=== PATIENT | female | born 1930 | race Caucasian/White ===

== ENCOUNTER 2019-03-17 11:45 | Inpatient (IN) ==
[2019-03-17 12:48] LABS: Albumin Level 3.4 gm/dl (3.4-5.0); BUN Creatinine Ratio 20.8 (10-20); Calcium 9.1 mg/dl (8.5-10.1); Creatinine Clr Calc Pharmacy 42.1 ml/min; Est GFR (African American) 70.4; Est GFR (Non-African American) 60.7; Magnesium 2.2 mg/dl (1.8-2.4); Potassium 4.2 mmol/L (3.5-5.1)
[2019-03-17 12:50] LABS: Basophils # (auto) 0.04 K/uL (0-0.2); Basophils % (auto) 0.4 %; Eosinophils # (auto) 0.14 K/uL (0-0.5); Eosinophils % (auto) 1.5 %; Hematocrit (blood only) 38.2 % (37-47); Hemoglobin 12.6 g/dL (12.0-16.0); Immature Granulocytes # (auto) 0.02 K/uL (0.00-0.02); Immature Granulocytes % (auto) 0.2 %; Lymphocytes # (auto) 1.79 K/uL (1.2-3.4); Lymphocytes % (auto) 19.4 %; Mean Corpuscular Hemoglobin 30.8 pg (25-34); Mean Corpuscular Volume 93.4 fL (80-100); Mean Platelet Volume 9.5 fL (7.4-10.4); Monocytes # (auto) 0.82 K/uL (0.11-0.59); Monocytes % (auto) 8.9 %; Neutrophils # (auto) 6.44 K/uL (1.4-6.5); Neutrophils % (auto) 69.6 %; Platelet Count 297 K/uL (130-400); RDW Coefficient of Variation 13.5 % (11.5-14.5); Red Blood Count 4.09 M/uL (4.2-5.4); White Blood Count 9.25 K/uL (4.8-10.8)
[2019-03-17 12:58] LABS: Albumin Globulin Ratio 0.9 (0.9-2); Bilirubin,Total 0.8 mg/dl (0.2-1); Thyroid Stimulating Hormone 0.79 uIu/ml (0.300-4.500); Total Protein 7.4 gm/dl (6.4-8.2)
[2019-03-17 13:30] LABS: Prothrombin Time 10.3 Seconds (9.0-12.0)
--- NOTE | 2019-03-17 13:32 | XRay Report ---
SINGLE VIEW CHEST CLINICAL HISTORY: Palpitations. FINDINGS: An AP, portable, upright chest radiograph is obtained. No prior studies are available for c omparison at the time of dictation. The heart is top normal for projection, noting atherosclerotic calcification of the thoracic aorta. There is elevation of right hemidiaphragm and bibasilar atelecta sis. The lungs and pleural spaces are otherwise clear. No pneumothorax is seen. The skeletal structur es are osteopenic. The bony thorax is grossly intact. IMPRESSION: No active disease in the chest. Electronically signed by: Justino Peralta M.D. 03/17/2019 1:31 PM
[2019-03-17 13:44] LABS: Phosphorus 3.6 mg/dl (2.5-4.9); Troponin I < 0.015 ng/ml (0-0.045)
[2019-03-17 14:39] LABS: Partial Thromboplastin Time 25.8 Seconds (21.0-31.0)
--- NOTE | 2019-03-17 14:41 | Cardiology Consultation ---
Date of Consultation March 17, 2019 Assessment & Plan (1) Paroxysmal atrial fibrillation: (2) Sick sinus syndrome: The patients recent subjective symptom of palpitations was not reproduced during her heart monitor however she had abnormalities as noted. At this time, recommend EP consultation for pacemaker. Her CHADSVASC score is 6 givne the following risk factors: HTN(1), age >75(2), female(1), stroke (2). Will start systemic anticoagulation with coumadin or a direct oral anticoagulant after the pacemaker. (3) HTN (hypertension): Continue prior to hospital dose of losartan 50 mg daily and amlodipine for now. Add AV herb blockers such as diltiazem and / or metoprolol post pacemaker. History of Present Illness History of Present Illness Destiney Snyder is an 88 year old female seen in cardiology consultation in ED room B3 per the request of Dr Giordano for the evaluation of recent subjective palpitations and abnormal ambulatory dry cleaner helper. The patient's primary operator command support systems is Dr. Mehran Langford of our practice. She had most recently been seen in routine follow-up on 09/24/2018. At that time she described stable cardiac signs and symptoms performing yoga twice per week. She had been having difficulty with worsening macular degeneration. 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 She has a long-standing history of hypertension that has recently been difficult to control. Her history is also notable for a lacunar stroke which took place in April 2017 and mild dyslipidemia. On 03/04/2019 she had been seen by primary care with subjective complaint of palpitations. She describes having had an episode on 03/02 with sensation of rapid heart rate. A nurse that lives in her building and her heart rate and blood pressure were noted with she took the pt's vitals. The patient considered going to the ED, however her heart rate racing stopped on its own after about 90 minutes and since she had a routine primary care visit planned in two days she waited for her appointment to bring it up. A 7-day ZioPatch Xt monitor was performed revealing findings compatible with sick sinus syndrome. Paroxysmal atrial fibrillation was detected with rapid ventricular response in the range of 60 to 190 bpm, average ventricular rate when in atrial fibrillation 122 bpm, 47% atrial fibrillation burden. There were also episodes of supraventricular tachycardia the longest of which was 19 beats in duration with rate of 121 bpm. An event captured on 03/08/2019 at 5:20 AM revealed atrial fibrillation with a subsequent 6.4-second pause, offset to transient junctional rhythm and then sinus bradycardia. She denies any recent syncope or near syncope. She no longer drives due to her macular degeneration. 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 Her granddaughter accompanies her to the ED. She lives alone in an apartment in [place] with her cat, Polly. Allergies Allergy/AdvReac Type Severity Reaction Status Date / Time triamterene Allergy Rash Unverified 03/17/19 13:02 amoxicillin AdvReac Unknown Unverified 03/17/19 13:01 lisinopril AdvReac Cough Unverified 03/17/19 13:01 NSAIDS (Non-Steroidal AdvReac Hypertensio Unverified 03/17/19 13:01 Anti-Inflamma n Home Medications Home Medications Medication Instructions Recorded Confirmed Type amlodipine 2.5 mg PO DAILY 03/17/19 03/17/19 History ascorbic acid (vitamin C) 1 g PO DAILY 03/17/19 03/17/19 History aspirin 81 mg PO DAILY 03/17/19 03/17/19 History atorvastatin 40 mg PO DAILY 03/17/19 03/17/19 History calcium carbonate [Calcium 500] 1,000 mg PO DAILY 03/17/19 03/17/19 History cholecalciferol (vitamin D3) 1,000 unit PO DAILY 03/17/19 03/17/19 History cyanocobalamin (vitamin B-12) 1,000 mcg PO DAILY 03/17/19 03/17/19 History diphenhydramine-acetaminophen 1 tab PO HS PRN 03/17/19 03/17/19 History [Tylenol PM Extra Strength] glucos sul [id number]-C-Mn 1 cap PO BID 03/17/19 03/17/19 History [Glucosamine Chondroitin] losartan 50 mg PO DAILY 03/17/19 03/17/19 History lutein 20 mg PO DAILY 03/17/19 03/17/19 History multivitamin 1 tab PO DAILY 03/17/19 03/17/19 History omeprazole 20 mg PO DAILY 03/17/19 03/17/19 History vit C,R-Je-ktioz-lutein-zeaxan 1 tab PO BID 03/17/19 03/17/19 History [PreserVision AREDS-2] vitamin E 1,000 unit PO DAILY 03/17/19 03/17/19 History Patient History Medical History Lyme disease (Resolved) Stroke (Resolved) Family History Other No pertinent family history in first degree relatives Social History Feels Safe at Home: Yes Smoking Status: Never smoker Review of Systems Review of Systems: All systems reviewed & are unremarkable except as noted in HPI & below Physical Exam Physical Exam: Temp Pulse Resp BP Pulse Ox 37 C 59 L 23 178/71 H 96 03/17/19 11:55 03/17/19 13:30 03/17/19 13:30 03/17/19 13:30 03/17/19 13:30 Constitutional: WD/WN, vitals as above Respiratory: normal respiratory effort, lungs clear to auscultation Cardiovascular: RRR, no murmur, no edema Gastrointestinal (Abdomen): normal bowel sounds, soft, nontender, no hepatosplenomegaly Neurologic: PERRL, EOMI, accommodation nl, no face palsy, no dysarthria Results & Data Vital Signs (Past 12 Hours) Vital Signs Temp Pulse Pulse Resp BP BP Pulse Ox 03/17/19 13:30 59 L 23 178/71 H 96 03/17/19 13:00 50 L 22 157/76 H 95 03/17/19 12:30 52 L 17 148/62 H 93 03/17/19 12:21 94 03/17/19 12:18 53 L 20 163/64 H 94 03/17/19 11:55 37 C 64 18 160/78 H 94 Laboratory Results Cardiac Enzymes 03/17/19 03/17/19 Range/Units 12:18 12:18 AST 15 (15-37) U/L Troponin I < 0.015 (0-0.045) ng/ml Coagulation 03/17/19 03/17/19 Range/Units 12:18 12:18 PT 10.3 (9.0-12.0) Seconds APTT 25.8 (21.0-31.0) Seconds CBC 03/17/19 Range/Units 12:18 WBC 9.25 (4.8-10.8) K/uL RBC 4.09 L (4.2-5.4) M/uL Hgb 12.6 (12.0-16.0) g/dL Hct 38.2 (37-47) % Plt Count 297 (130-400) K/uL Neut # (Auto) 6.44 (1.4-6.5) K/uL Lymph # (Auto) 1.79 (1.2-3.4) K/uL Hooker # (Auto) 0.82 H (0.11-0.59) K/uL Eos # (Auto) 0.14 (0-0.5) K/uL Baso # (Auto) 0.04 (0-0.2) K/uL Comprehensive Metabolic Panel 03/17/19 Range/Units 12:18 Sodium 140 (136-145) mmol/L Potassium 4.2 (3.5-5.1) mmol/L Chloride 104 (98-107) mmol/L Carbon Dioxide 28 (21-32) mmol/L BUN 18 (7-18) mg/dl Creatinine 0.86 (0.6-1.2) mg/dl Glucose 83 (70-99) mg/dl Calcium 9.1 (8.5-10.1) mg/dl AST 15 (15-37) U/L ALT 23 (12-78) U/L Alkaline Phosphatase 118 H (45-117) U/L Total Protein 7.4 (6.4-8.2) gm/dl Albumin 3.4 (3.4-5.0) gm/dl Intake and Output 03/17/19 03/17/19 03/17/19 06:59 14:59 22:59 Other: Weight 64.3 kg Patient Weight 03/18/19 06:59 Weight 64.3 kg Diagnostic Findings EKG performed today in the ED revealed SB at 59 bpm normal TN interval, normal QRS duration.
[2019-03-17] MEDS ORDERED: DiphenhydrAMINE HCL 50 MG/ML VIAL IV STA (14:54)
--- NOTE | 2019-03-17 14:58 | History & Physical Report ---
Date of Service March 17, 2019 Assessment & Plan (1) Sick sinus syndrome: This is an 88yo F with a PMH of HTN, h/o CVA (lacunar stroke in Apr 2017), PVD, CKD III, and other medical problems listed below who presents with abnormal results on ZIO heart monitor and was found to have sick sinus syndrome. -Had episode of palpitations 2 weeks ago, OP ZIO monitor with varying HR from 40s-190s with 47% atrial fibrillation. Also revealed a 6 second pause on Mar 08 -Currently asymptomatic. EKG with sinus bradycardia at 59 bpm -Cardiology consulted- recommend EP consultation for pacemaker -Will continue losartan and amlodipine for now -Monitor on telemetry. NPO after midnight (2) Paroxysmal atrial fibrillation: Noted to have atrial fibrillation on ZIO monitor 47% of the time -CHADSVASC score is 6. Per cardiology, will start systemic anticoagulation with coumadin or a direct oral anticoagulant after pacemaker placement (3) HTN (hypertension): Continue losartan 50mg daily and amlodipine 2.5mg daily -Plan to add AV herb blockers such as diltiazem and /or metoprolol post pacemaker (4) HLD (hyperlipidemia): Continue statin (5) H/O: CVA (cerebrovascular accident): History of lacunar infarct in Apr 2017, no residual deficits -Continue baby aspirin, statin (6) Macular degeneration: Continue AREDS 2 multivitamin DVT Ppx: SCDS Code status: FULL PCP: Crystal Dispo: Admitted to telemetry. Plan to return home once medically stable. Patient seen in collaboration with Dr. Ramos. Please see addendum. History of Present Illness Chief Complaint: Abnormal zio monitor results Primary Care Provider: Rufina Rojas, This is an 88yo F with a PMH of HTN, h/o CVA (lacunar stroke in Apr 2017), PVD, CKD III, and other medical problems listed below who presents with abnormal results on ZIO heart monitor. Earlier this month on Mar 02, patient experienced a 90-minute episode of heart racing and associated lightheadedness before symptoms resolved. Had her vitals taken by nurse at apartment building and was advised to go to ED but decided to follow-up at previously scheduled clinic appointment 2 days later. Was placed on a 7-day ZIO heart monitor that showed varying HR from 40s-190s with 47% atrial fibrillation. Also revealed a 6 second pause on Mar 08. PCP made aware of monitored findings today and spoke with Dr. López in clinic, who advised that patient come to ED for further evaluation and likely pacemaker placement. Currently, patient is asymptomatic. Granddaughter at bedside. Denies fever, chills, headache, lightheadedness, visual changes, chest pain, palpitations, shortness of breath, abdominal pain, nausea, vomiting, dysuria, constipation or diarrhea. Patient is active and lives at [facility] in [place]. Manages own medications and ambulates independently. Allergies Allergy/AdvReac Type Severity Reaction Status Date / Time triamterene Allergy Rash Unverified 03/17/19 13:02 amoxicillin AdvReac Unknown Unverified 03/17/19 13:01 lisinopril AdvReac Cough Unverified 03/17/19 13:01 NSAIDS (Non-Steroidal AdvReac Hypertensio Unverified 03/17/19 13:01 Anti-Inflamma n Home Medications Home Medications Medication Instructions Recorded Confirmed Type amlodipine 2.5 mg PO DAILY@1620 03/17/19 03/17/19 History ascorbic acid (vitamin C) 1 g PO DAILY 03/17/19 03/17/19 History aspirin 81 mg PO DAILY 03/17/19 03/17/19 History atorvastatin 40 mg PO DAILY 03/17/19 03/17/19 History calcium carbonate [Calcium 500] 1,000 mg PO DAILY 03/17/19 03/17/19 History cholecalciferol (vitamin D3) 1,000 unit PO DAILY 03/17/19 03/17/19 History cyanocobalamin (vitamin B-12) 1,000 mcg PO DAILY 03/17/19 03/17/19 History diphenhydramine-acetaminophen 1 tab PO HS PRN 03/17/19 03/17/19 History [Tylenol PM Extra Strength] glucos sul [id number]-bmf-gddca-C-Mn 1 cap PO BID 03/17/19 03/17/19 History [Glucosamine Chondroitin] losartan 50 mg PO DAILY 03/17/19 03/17/19 History lutein 20 mg PO DAILY 03/17/19 03/17/19 History multivitamin 1 tab PO DAILY 03/17/19 03/17/19 History omeprazole 20 mg PO DAILY 03/17/19 03/17/19 History vit C,Q-Dp-kedfv-lutein-zeaxan 1 tab PO BID 03/17/19 03/17/19 History [PreserVision AREDS-2] vitamin E 1,000 unit PO DAILY 03/17/19 03/17/19 History Past Med/Surg History Medical History History of breast cancer (Resolved) Macular degeneration (Chronic) CKD (chronic kidney disease), stage III (Chronic) H/O: CVA (cerebrovascular accident) (Chronic) lacunar stroke, Apr 2017 HLD (hyperlipidemia) (Chronic) HTN (hypertension) (Chronic) Surgical History History of modified radical mastectomy of right breast (Chronic) Family History Other Colorectal cancer Heart disease Social History Preferred Language: Croatian Communication Ability: Effective Beliefs That Will Affect Care: Buddhism Buddhism Beliefs: Latter Day marital status: / Current Living Situation: Alone Current Living Situation Comment: independent living apartments Feels Safe at Home: Yes Smoking Status: Never smoker Hx Alcohol Use: No Hx Substance Use: No Review of Systems Review of Systems: At least ten systems reviewed and negative except as noted in the HPI. Physical Exam Physical Exam: General Appearance: WD/WN, vitals as above, NAD, sitting up in bed, pleasant, conversing easily Head: normocephalic, atraumatic Eyes: Blind L eye, PERRL, conjunctivae normal, anicteric sclerae ENT: external ear and nose normal, oropharynx normal Neck: trachea midline, no thyromegaly normal visual inspection Respiratory: lungs clear to auscultation, no wheeze, rales, rhonchi. Normal insp/exp effort, no accessory muscle use Cardiovascular: regular rate, rhythm, no murmur appreciated, normal peripheral pulses. Vessels: no JVD or carotid bruit Chest: normal inspection of chest Abdomen/GI: normal bowel sounds, soft, nontender, no hepatosplenomegaly Extremities/Musculoskelatal: no cyanosis or clubbing, extremities motor strength 5/5 Neurologic: PERRL, EOMI, accommodation nl, no face palsy, no dysarthria CN's II-XI intact bilaterally and moves all extremities Psychiatric: A+Ox3, euthymic affect Skin: no rashes, normal color, warm/dry Results & Data Vital Signs (Past 12 Hours) Vital Signs Temp Pulse Pulse Resp BP BP Pulse Ox 03/17/19 14:55 58 L 24 171/63 H 93 03/17/19 13:30 59 L 23 178/71 H 96 03/17/19 13:00 50 L 22 157/76 H 95 03/17/19 12:30 52 L 17 148/62 H 93 03/17/19 12:21 94 03/17/19 12:18 53 L 20 163/64 H 94 03/17/19 11:55 37 C 64 18 160/78 H 94 Laboratory Results Short CBC 03/17/19 Range/Units 12:18 WBC 9.25 (4.8-10.8) K/uL Hgb 12.6 (12.0-16.0) g/dL Hct 38.2 (37-47) % Plt Count 297 (130-400) K/uL BMP 03/17/19 12:18 Sodium 140 Potassium 4.2 Chloride 104 Carbon Dioxide 28 BUN 18 Creatinine 0.86 Glucose 83 Calcium 9.1 Cardiac Enzymes 03/17/19 Range/Units 12:18 Troponin I < 0.015 (0-0.045) ng/ml Liver Function 03/17/19 Range/Units 12:18 Total Bilirubin 0.8 (0.2-1) mg/dl AST 15 (15-37) U/L ALT 23 (12-78) U/L Alkaline Phosphatase 118 H (45-117) U/L Albumin 3.4 (3.4-5.0) gm/dl Diagnostic Findings CXR: IMPRESSION: No active disease in the chest. ECG Rhythm: sinus bradycardia Code Status & VTE Plan Code Status Advanced directives discussed with patient. She has a living will. She would like resuscitation attempted in the event of a cardiopulmonary arrest if there is a chance of a meaningful recovery. However, she does not want extraordinary measures initiated or continued in the setting of a terminal illness or state of permanent unconsciousness. Code status is full resuscitation. Supervising Physician Co-Signing Physician Notes HISTORY: Record reviewed. Patient interviewed and examined. Care coordinated with Melissa Francois PA-C; please refer to her documentation for patient's history. Briefly, 88 YO female with history of paroxysmal atrial fibrillation and hypertension. Recent prolonged episode of tachypalpitations. Outpatient cardiac monitoring with ZIO patch revealed runs of atrial fib / flutter as well as bradycardia and pauses up to 6 seconds. No associated CP, SOB, lightheadedness, syncope. EXAM: General- no distress Lungs- clear to auscultation; no respiratory distress Cardiovascular- RRR; I/ murmur at base; no gallop; no JVD; no pretibial edema Abdomen- + bowel sounds, soft, nontender Extremities- no cyanosis; no calf tenderness Neuro- alert, oriented Skin- warm & dry DATA: TSH 0.79. Other lab studies as noted. Chest x-ray negative. EKG performed at 12:00 reviewed and demonstrated SB at 55 / minute, no acute changes. ASSESSMENT AND PLAN: Tachy-citlaly syndrome. Anticipated need for pacemaker and rate controlling meds. Cardiology consulted. Please refer to BROOKE Francois's documentation for discussion of other issues.
--- NOTE | 2019-03-17 16:15 | Cardiology Consultation ---
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 Treating her rapid heart rate without a pacemaker is not an option due to her bradycardia. (2) Paroxysmal atrial fibrillation: She has atrial fibrillation identified on monitoring, during a week of monitoring she had more than 45% atrial fibrillation. The rates were quite fast and she needs rate control. Additionally she will need anticoagulation, especially with her history of stroke. I would like to wait until after the pacemaker is implanted to consider anticoagulation. (3) Sinus node dysfunction: She has sinus node dysfunction as evidenced by a markedly abnormal sinus node recovery time after termination of atrial fibrillation, one pause of over 6 seconds identified. Despite lack of symptoms this is risky, in addition she needs rate control for her atrial fibrillation which might potentiate this abnormality. History of Present Illness Reason for Consultation: Pause on monitoring History of Present Illness This is a 88-year-old woman with a history of Lyme carditis with transient atrial fibrillation in December of this year, as well as hypertension and a lacunar stroke in April 2017. She was having difficulty with palpitations and therefore a monitor was ordered, that monitor showed paroxysmal atrial f ibrillation comprising 47% of the recording, the average heart rate during atrial fibrillation was about 122 bpm.on one occasion the arrhythmia terminated abruptly with a pause of longer than 6 seconds before sinus rhythm resumed. Her baseline heart rate is somewhat slow, however she appears to be asymptomatic. She does not have symptoms of lightheadedness or dizziness and has never had presyncope or syncope. She has no other cardiovascular symptoms. She was referred to the emergency room. At the time of my evaluation she was in the emergency room with I believe her granddaughter. She was not having any complaints, she was alert and cooperative. Allergies Allergy/AdvReac Type Severity Reaction Status Date / Time triamterene Allergy Rash Unverified 03/17/19 13:02 amoxicillin AdvReac Unknown Unverified 03/17/19 13:01 lisinopril AdvReac Cough Unverified 03/17/19 13:01 NSAIDS (Non-Steroidal AdvReac Hypertensio Unverified 03/17/19 13:01 Anti-Inflamma n Home Medications Home Medications Medication Instructions Recorded Confirmed Type amlodipine 2.5 mg PO DAILY@2510 03/17/19 03/17/19 History ascorbic acid (vitamin C) 1 g PO DAILY 03/17/19 03/17/19 History aspirin 81 mg PO DAILY 03/17/19 03/17/19 History atorvastatin 40 mg PO DAILY 03/17/19 03/17/19 History calcium carbonate [Calcium 500] 1,000 mg PO DAILY 03/17/19 03/17/19 History cholecalciferol (vitamin D3) 1,000 unit PO DAILY 03/17/19 03/17/19 History cyanocobalamin (vitamin B-12) 1,000 mcg PO DAILY 03/17/19 03/17/19 History diphenhydramine-acetaminophen 1 tab PO HS PRN 03/17/19 03/17/19 History [Tylenol PM Extra Strength] glucos sul 2QJw-qck-jgtxo-C-Mn 1 cap PO BID 03/17/19 03/17/19 History [Glucosamine Chondroitin] losartan 50 mg PO DAILY 03/17/19 03/17/19 History lutein 20 mg PO DAILY 03/17/19 03/17/19 History multivitamin 1 tab PO DAILY 03/17/19 03/17/19 History omeprazole 20 mg PO DAILY 03/17/19 03/17/19 History vit C,V-Xu-kawdm-lutein-zeaxan 1 tab PO BID 03/17/19 03/17/19 History [PreserVision AREDS-2] vitamin E 1,000 unit PO DAILY 03/17/19 03/17/19 History Patient History Medical History History of breast cancer (Resolved) Macular degeneration (Chronic) CKD (chronic kidney disease), stage III (Chronic) H/O: CVA (cerebrovascular accident) (Chronic) lacunar stroke, Apr 2017 HLD (hyperlipidemia) (Chronic) HTN (hypertension) (Chronic) Surgical History History of modified radical mastectomy of right breast (Chronic) Family History Other Colorectal cancer Heart disease Social History marital status: / Current Living Situation: Alone Feels Safe at Home: Yes Smoking Status: Never smoker Hx Alcohol Use: No Hx Substance Use: No Physical Exam Physical Exam: Constitutional: Alert, cooperative and in no distress. HEENT: Unremarkable Neck: No jugular venous distention, carotid pulses are normal and equal bilaterally without bruits. Pulmonary: Clear to auscultation bilaterally. Cardiac: Regular rhythm with no murmur, gallop or rub. Abdomen: Soft, nontender with normal bowel sounds. Extremities: No edema. Distal pulses intact. Neurologic: No focal findings. Gait is steady. Skin: No rash, ecchymoses or petechiae. Results & Data Vital Signs (Past 12 Hours) Vital Signs Temp Pulse Pulse Resp BP BP Pulse Ox 03/17/19 15:30 54 L 20 160/69 H 96 03/17/19 15:01 64 25 H 199/72 H 95 03/17/19 14:55 58 L 24 171/63 H 93 03/17/19 13:30 59 L 23 178/71 H 96 03/17/19 13:00 50 L 22 157/76 H 95 03/17/19 12:30 52 L 17 148/62 H 93 03/17/19 12:21 94 03/17/19 12:18 53 L 20 163/64 H 94 03/17/19 11:55 37 C 64 18 160/78 H 94 Diagnostic Findings On telemetry her rhythm has been sinus in the emergency room. An electrocardiogram in the emergency showed sinus bradycardia at 55 bpm, otherwise normal. Her monitor strip was reviewed as noted in the HPI. PG Care Time/CCT Total # of Minutes Spent Total Time Spent with Patient: Total time spent is greater than 50% in coordination of care (as documented) at patient's floor/unit and/or counseling patient:
[2019-03-17] MEDS ORDERED: HydrALAZINE HCL 20 MG/ML VIAL IV PRN (17:07)
[2019-03-17] MEDS ORDERED: AMLODIPINE BESYLATE 5 MG TAB PO ONE (17:15)
[2019-03-17] MEDS ORDERED: POLYETHYLENE (MIRALAX) 17 GM PACK PO PRN (18:07)
[2019-03-17] MEDS ORDERED: ACETAMINOPHEN 325 MG TAB PO PRN (18:07)
[2019-03-17] MEDS: CEROVITE ADV FORMULA TAB PO SCH (20:39)
--- NOTE | 2019-03-17 21:14 | Emergency Department Note ---
Entered by Tigist Regalado acting as a scribe for Renan Giordano MD History of Present Illness General Chief complaint: Referred by Doctor Stated complaint: DOCTOR REFERRED Time Seen by Provider: 03/17/19 13:08 Source: patient and family History of Present Illness Onset (ago): hour(s) (today) Location: head (general) Pain Consistency: + other (episode ) Quality: + other (referral by PCP ) Associated symptoms: + other (positive now resolved episode of dizziness; positive now resolved episode of palpitations); no chest pain The patient is a 88 year old female who presents to the Emergency Room with complaints of an episode of a referral by her PCP that occurred today. The patient states that she wore a Holter monitor for 7 days beginning on 03/02/19 after she had an episode of dizziness and palpitations. The patient states that she has not had these symptoms since this time and denies chest pain during this time. The patient states that she was told to come to the ED by her PCP after the report came back from her Holter monitor and showed a 6 second pause and 47% of the time the patient was in flutter. The patient denies a history of Afib or Aflutter. Per the patient's family, the patient has a history of stroke. Home Medications Home Medications Medication Instructions Recorded Confirmed Type amlodipine 2.5 mg PO DAILY@1620 03/17/19 03/17/19 History ascorbic acid (vitamin C) 1 g PO DAILY 03/17/19 03/17/19 History aspirin 81 mg PO DAILY 03/17/19 03/17/19 History atorvastatin 40 mg PO DAILY 03/17/19 03/17/19 History calcium carbonate [Calcium 500] 1,000 mg PO DAILY 03/17/19 03/17/19 History cholecalciferol (vitamin D3) 1,000 unit PO DAILY 03/17/19 03/17/19 History cyanocobalamin (vitamin B-12) 1,000 mcg PO DAILY 03/17/19 03/17/19 History diphenhydramine-acetaminophen 1 tab PO HS PRN 03/17/19 03/17/19 History [Tylenol PM Extra Strength] glucos sul [id number] 1 cap PO BID 03/17/19 03/17/19 History [Glucosamine Chondroitin] losartan 50 mg PO DAILY 03/17/19 03/17/19 History lutein 20 mg PO DAILY 03/17/19 03/17/19 History multivitamin 1 tab PO DAILY 03/17/19 03/17/19 History omeprazole 20 mg PO DAILY 03/17/19 03/17/19 History vit C,P-Qa-otwkt-lutein-zeaxan 1 tab PO BID 03/17/19 03/17/19 History [PreserVision AREDS-2] vitamin E 1,000 unit PO DAILY 03/17/19 03/17/19 History Allergies Allergy/AdvReac Type Severity Reaction Status Date / Time triamterene Allergy Rash Unverified 03/17/19 13:02 amoxicillin AdvReac Unknown Unverified 03/17/19 13:01 lisinopril AdvReac Cough Unverified 03/17/19 13:01 NSAIDS (Non-Steroidal AdvReac Hypertensio Unverified 03/17/19 13:01 Anti-Inflamma n Past Med/Surg History Medical History History of breast cancer (Resolved) Macular degeneration (Chronic) CKD (chronic kidney disease), stage III (Chronic) H/O: CVA (cerebrovascular accident) (Chronic) lacunar stroke, Apr 2017 HLD (hyperlipidemia) (Chronic) HTN (hypertension) (Chronic) Surgical History History of modified radical mastectomy of right breast (Chronic) Family History Other Colorectal cancer Heart disease Social History Preferred Language: Danish Communication Ability: Effective Beliefs That Will Affect Care: Jewish Jewish Beliefs: Zoroastrianism marital status: / Current Living Situation: Alone Current Living Situation Comment: independent living apartments Feels Safe at Home: Yes Smoking Status: Never smoker Hx Alcohol Use: No Hx Substance Use: No Review of Systems See HPI for pertinent positives & negatives. and A total of 10 systems reviewed and were otherwise negative Physical Exam Vital Signs Vital Signs - 24 hr 03/17/19 11:55 03/17/19 12:18 03/17/19 12:21 Temperature 37 C Temperature Source Oral Sepsis Recent Fever Within 48 Hours No Sepsis New/Unexplained Change in Mental Status No Sepsis Action Taken by Nursing No Action Required Pulse Rate 64 Pulse Rate [Left Finger] 53 L Pulse Rate from SpO2 Sensor Pulse Rhythm [Left Finger] Regular Respiratory Rate 18 20 Respiratory Effort / Characteristics Non-Labored Non-Labored Respiratory Depth Normal Normal Respiratory Pattern Regular Blood Pressure 160/78 H Blood Pressure [Left Arm] 163/64 H Blood Pressure Mean 105 Blood Pressure Mean [Left Arm] 97 Pulse Oximetry 94 94 94 Oxygen Delivery Method Room Air Room Air Room Air 03/17/19 12:30 03/17/19 13:00 03/17/19 13:30 Temperature Temperature Source Sepsis Recent Fever Within 48 Hours Sepsis New/Unexplained Change in Mental Status Sepsis Action Taken by Nursing Pulse Rate 52 L 50 L 59 L Pulse Rate [Left Finger] Pulse Rate from SpO2 Sensor 53 L 50 L 57 L Pulse Rhythm [Left Finger] Respiratory Rate 17 22 23 Respiratory Effort / Characteristics Respiratory Depth Respiratory Pattern Blood Pressure 148/62 H 157/76 H 178/71 H Blood Pressure [Left Arm] Blood Pressure Mean 90 103 106 Blood Pressure Mean [Left Arm] Pulse Oximetry 93 95 96 Oxygen Delivery Method GENERAL: Awake, alert, well-appearing, in no distress HENT: Normocephalic, atraumatic. Oropharynx with dry mucous membranes and otherwise unremarkable. EYES: Normal conjunctiva. Sclera non-icteric. NECK: Supple. No nuchal rigidity. FROM. No JVD. RESPIRATORY: CTAB. CARDIAC: Regular rate, normal rhythm. Extremities warm and well perfused. Pulses equal. ABDOMEN: Soft, non-distended. No tenderness to palpation. No rebound or guarding. No masses. RECTAL: Deferred. MUSCULOSKELETAL: Chest examination reveals no tenderness. The back is symmetrical on inspection without obvious abnormality. There is no CVA tenderness to palpation. No joint edema. LOWER EXTREMITIES: Calves are equal size bilaterally and non-tender. No edema. No discoloration. NEURO: Normal sensorium. No sensory or motor deficits noted. SKIN: No rash or jaundice noted. Course 1357: Past medical records reviewed. The patient was evaluated in room B3B. A complete history and physical exam was performed. 1417: I discussed the case with Dr. Sheehan [facility] who is aware of the case and is in agreement with the plan. 1419: I discussed the case with Melissa Morris PA-C who accepts the patient for further evaluation. Consultations Consultation #1: I discussed the case with Dr. Sheehan Cardiology who is aware of the case and is in agreement with the plan. Time: 14:17 Consultation #2: I discussed the case with Melissa Morris PA-C who accepts the patient for further evaluation. Time: 14:19 Administered Medications Multivitamins/Minerals (Multivitamin W/ Minerals Tab) 1 tab PO BID ISI Stop: 04/16/19 20:59 Last Admin: 03/17/19 20:39 Dose: 1 tab Documented by: [id number] Discontinued Medications Amlodipine Besylate (Norvasc) 2.5 mg PO ONE ONE Stop: 03/17/19 17:16 Last Admin: 03/17/19 17:15 Dose: 2.5 mg Documented by: [id number] Diphenhydramine HCl (Benadryl) 12.5 mg IV NOW STA Stop: 03/17/19 14:55 Last Admin: 03/17/19 16:13 Dose: Not Given Documented by: [id number] Medical Decision Making Differential Diagnosis Differential diagnosis includes etiologies such as premature contractions, electrolyte abnormality, cardiac dysrhythmia, thyroid dysfunction, pulmonary embolism, infection, gastrointestinal, as well as others were entertained. Medical Records Attestation: I reviewed the patient's medical records. Home Medications Current Medication List: was personally reviewed by me Laboratory Data Attestation: I reviewed the patient's lab results. Result diagrams: 03/17/19 12:18 03/17/19 12:18 Lab Results 03/17/19 03/17/19 03/17/19 Range/Units 12:18 12:18 12:18 WBC 9.25 (4.8-10.8) K/uL RBC 4.09 L (4.2-5.4) M/uL Hgb 12.6 (12.0-16.0) g/dL Hct 38.2 (37-47) % MCV 93.4 (80-100) fL MCH 30.8 (25-34) pg MCHC 33.0 (32-36) g/dL RDW Std Deviation 46.0 (36.4-46.3) fL RDW Coeff of Benson 13.5 (11.5-14.5) % Plt Count 297 (130-400) K/uL MPV 9.5 (7.4-10.4) fL Immature Gran % (Auto) 0.2 % Neut % (Auto) 69.6 % Lymph % (Auto) 19.4 % Ward % (Auto) 8.9 % Eos % (Auto) 1.5 % Baso % (Auto) 0.4 % Immature Gran # (Auto) 0.02 (0.00-0.02) K/uL Neut # (Auto) 6.44 (1.4-6.5) K/uL Lymph # (Auto) 1.79 (1.2-3.4) K/uL [place] # (Auto) 0.82 H (0.11-0.59) K/uL Eos # (Auto) 0.14 (0-0.5) K/uL Baso # (Auto) 0.04 (0-0.2) K/uL PT 10.3 (9.0-12.0) Seconds INR 1.0 (0.9-1.1) APTT (21.0-31.0) Seconds PTT Ratio Sodium 140 (136-145) mmol/L Potassium 4.2 (3.5-5.1) mmol/L Chloride 104 (98-107) mmol/L Carbon Dioxide 28 (21-32) mmol/L Anion Gap 7.0 (3-11) BUN 18 (7-18) mg/dl Creatinine 0.86 (0.6-1.2) mg/dl Est Cr Clr Drug Dosing 42.1 ml/min Est GFR ( Amer) 70.4 Est GFR (Non-Af Amer) 60.7 BUN/Creatinine Ratio 20.8 H (10-20) Glucose 83 (70-99) mg/dl Calcium 9.1 (8.5-10.1) mg/dl Phosphorus (2.5-4.9) mg/dl Magnesium 2.2 (1.8-2.4) mg/dl Total Bilirubin 0.8 (0.2-1) mg/dl AST 15 (15-37) U/L ALT 23 (12-78) U/L Alkaline Phosphatase 118 H (45-117) U/L Troponin I (0-0.045) ng/ml Total Protein 7.4 (6.4-8.2) gm/dl Albumin 3.4 (3.4-5.0) gm/dl Globulin 4.0 (2.5-4.0) gm/dl Albumin/Globulin Ratio 0.9 (0.9-2) TSH 0.790 (0.300-4.500) uIu/ml 03/17/19 03/17/19 Range/Units 12:18 12:18 WBC (4.8-10.8) K/uL RBC (4.2-5.4) M/uL Hgb (12.0-16.0) g/dL Hct (37-47) % MCV (80-100) fL MCH (25-34) pg MCHC (32-36) g/dL RDW Std Deviation (36.4-46.3) fL RDW Coeff of Benson (11.5-14.5) % Plt Count (130-400) K/uL MPV (7.4-10.4) fL Immature Gran % (Auto) % Neut % (Auto) % Lymph % (Auto) % Ward % (Auto) % Eos % (Auto) % Baso % (Auto) % Immature Gran # (Auto) (0.00-0.02) K/uL Neut # (Auto) (1.4-6.5) K/uL Lymph # (Auto) (1.2-3.4) K/uL Ward # (Auto) (0.11-0.59) K/uL Eos # (Auto) (0-0.5) K/uL Baso # (Auto) (0-0.2) K/uL PT (9.0-12.0) Seconds INR (0.9-1.1) APTT 25.8 (21.0-31.0) Seconds PTT Ratio 1.0 Sodium (136-145) mmol/L Potassium (3.5-5.1) mmol/L Chloride (98-107) mmol/L Carbon Dioxide (21-32) mmol/L Anion Gap (3-11) BUN (7-18) mg/dl Creatinine (0.6-1.2) mg/dl Est Cr Clr Drug Dosing ml/min Est GFR ( Amer) Est GFR (Non-Af Amer) BUN/Creatinine Ratio (10-20) Glucose (70-99) mg/dl Calcium (8.5-10.1) mg/dl Phosphorus 3.6 (2.5-4.9) mg/dl Magnesium (1.8-2.4) mg/dl Total Bilirubin (0.2-1) mg/dl AST (15-37) U/L ALT (12-78) U/L Alkaline Phosphatase (45-117) U/L Troponin I < 0.015 (0-0.045) ng/ml Total Protein (6.4-8.2) gm/dl Albumin (3.4-5.0) gm/dl Globulin (2.5-4.0) gm/dl Albumin/Globulin Ratio (0.9-2) TSH (0.300-4.500) uIu/ml Imaging Data Radiologist's Impression: Radiology results as stated below per my review and the radiologist's interpretation: SINGLE VIEW CHEST CLINICAL HISTORY: Palpitations. FINDINGS: An AP, portable, upright chest radiograph is obtained. No prior studies are available for comparison at the time of dictation. The heart is top normal for projection, noting atherosclerotic calcification of the thoracic aorta. There is elevation of right hemidiaphragm and bibasilar atelectasis. The lungs and pleural spaces are otherwise clear. No pneumothorax is seen. The skeletal structures are osteopenic. The bony thorax is grossly intact. IMPRESSION: No active disease in the chest. Electronically signed by: Justino Peralta M.D. 03/17/2019 1:31 PM ECG Data Attestation: I personally reviewed and interpreted this ECG as follows: Indication: weakness Rate (beats per minute): 55 Rhythm: sinus bradycardia Findings: + other (normal axis); no ST depression, no ST elevation and no acute ischemic change Blood Pressure Blood Pressure Findings: Elevated blood pressure Blood Pressure Disposition: further management by hospitalist ESTEE Narrative The patient is a pleasant 88-year-old woman with a past medical history of CKD, hypertension, hyperlipidemia presents emergency department for admission and evaluation for pacemaker after the patient had interpretation of her recent Holter monitor that 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 Of note, the patient had this monitor placed after she had a near syncopal e pisode with palpitations on 03/02 and denies any recurrent episodes of near syncope or palpitations since then. On arrival patient is no acute distress, afebrile stable vital signs. EKG with sinus bradycardia without overt acute ischemia. No evidence of high-grade block. WBC, H/H and platelets within normal limits. Chemistry without acidosis. Electrolytes and LFTs unremarkable. Troponin negative. Patient and family are agreeable for admission. I discussed the case with Erick Turk cardiology on-call who reviewed the patient's records and agrees with plan for admission for pacemaker placement. While the patient's monitor did document recent episodes of afib/flutter around 47% of the time, the patient is currently in sinus rhythm and therefore we can hold on providing anticoagulation for now. Case was discussed with Erick Anthony PA-C, who evaluate the patient for admission. 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 I confirm that the note above accurately reflects all work, treatment, procedures, and medical decision making performed by me.
[2019-03-18] MEDS ORDERED: CLINDAMYCIN 600 MG/54 ML BAG IV SCH (06:00)
[2019-03-18 06:23] LABS: Hematocrit (blood only) 37.5 % (37-47); Hemoglobin 12.4 g/dL (12.0-16.0); Mean Corpuscular Hemoglobin 30.3 pg (25-34); Mean Corpuscular Hgb Conc 33.1 g/dL (32-36); Mean Corpuscular Volume 91.7 fL (80-100); Mean Platelet Volume 9.6 fL (7.4-10.4); Platelet Count 265 K/uL (130-400); RDW Coefficient of Variation 13.3 % (11.5-14.5); RDW Standard Deviation 44.3 fL (36.4-46.3); Red Blood Count 4.09 M/uL (4.2-5.4); White Blood Count 8.02 K/uL (4.8-10.8)
[2019-03-18 07:03] LABS: BUN Creatinine Ratio 26.8 (10-20); Calcium 8.7 mg/dl (8.5-10.1); Creatinine Clr Calc Pharmacy 50.3 ml/min; Est GFR (African American) 87.3; Est GFR (Non-African American) 75.3
[2019-03-18] MEDS ORDERED: LACTATED RINGER'S 1,000 ML IV SCH (08:00)
[2019-03-18] MEDS: CEROVITE ADV FORMULA TAB PO SCH ×2 (08:01→21:08)
[2019-03-18] MEDS: CALCIUM CARBONATE 1250MG TAB PO SCH (08:01)
[2019-03-18] MEDS: LOSARTAN POTASSIUM 50 MG TAB PO SCH (08:01)
[2019-03-18] MEDS: PANTOprazole 40 MG TAB PO SCH (08:02)
[2019-03-18] MEDS: ASPIRIN 81 MG ECTAB PO SCH (08:02)
[2019-03-18] MEDS: ASCORBIC ACID 500 MG TAB PO SCH (08:02)
[2019-03-18] MEDS: CHOLECALCIFEROL 1,000 UNITS TAB PO SCH (08:02)
[2019-03-18] MEDS: ATORVASTATIN 40 MG TAB PO SCH (08:02)
[2019-03-18] MEDS: TOCOPHERYL, DL-ALPHA 400 UNITS CAP PO SCH (08:03)
[2019-03-18] MEDS: CYANOCOBALAMIN 500 MCG TABLET (VITAMIN B-12) PO SCH (08:03)
[2019-03-18] MEDS ORDERED: MULTIVITAMIN TAB PO SCH (09:00)
[2019-03-18] MEDS ORDERED: NON-FORMULARY MEDICATION (Lutein 20 MG) PO SCH (09:00)
[2019-03-18] MEDS ORDERED: CALCIUM CARBONATE 1250MG TAB PO SCH (09:00)
--- NOTE | 2019-03-18 09:19 | Cardiology Progress Note ---
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 Treating her rapid heart rate without a pa cemaker is not an option due to her bradycardia. Once her pacemaker is in place we can add rate controlling medications. I discussed the indications, procedure, risks and alternatives of pacemaker i mplantation with her again (I had discussed it yesterday with her family) and she understands and agrees to proceed. Consent obtained. I also discussed conscious sedation with her and she agrees to proceed. Consent obtained. (2) Paroxysmal atrial fibrillation: She has atrial fibrillation identified on monitoring, during a week of monitoring she had more than 45% atrial fibrillation. The rates were quite fast and she needs rate control. Additionally she will need anticoagulation, especially with her history of stroke. I would like to wait until after the pacemaker is implanted to consider anticoagulation. (3) Sinus node dysfunction: She has sinus node dysfunction as evidenced by a markedly abnormal sinus node recovery time after termination of atrial fibrillation, one pause of over 6 seconds identified. Despite lack of symptoms this is risky, in addition she needs rate control for her atrial fibrillation which might potentiate this abnormality. During this hospitalization she has had no recurrence of her pauses but she has not had tachycardia, she does have an overall slow heart rate on no medications to cause it. (4) HTN (hypertension): Her blood pressure is markedly elevated this admission. Once we have the pacemaker in place I can start beta-blockade to help with her atrial arrhythmia and her hypertension. Subjective She is feeling well today, she has no complaints. She was sitting at her bedside. Physical Exam Physical Exam: Constitutional: Alert, cooperative and in no distress. Pulmonary: Clear to auscultation bilaterally. Cardiac: Regular rhythm with no murmur, gallop or rub. Abdomen: Soft, nontender with normal bowel sounds. Extremities: No edema. Skin: No rash, ecchymoses or petechiae. Results & Data Vital Signs (Past 12 Hours) Vital Signs Temp Pulse Resp BP Pulse Ox Pulse Ox 03/18/19 07:45 36.6 C 53 L 17 176/68 H 95 03/18/19 03:00 36.4 C L 53 L 16 151/70 H 93 09/23/19 23:45 92 03/17/19 23:00 36.6 C 60 16 156/75 H 92 Diagnostic Findings ECG: Sinus bradycardia, no acute changes Telemetry: Sinus rhythm and sinus bradycardia, no tacky arrhythmia noted PG Care Time/CCT Total # of Minutes Spent Total Time Spent with Patient: Total time spent is greater than 50% in coordination of care (as documented) at patient's floor/unit and/or counseling patient:
[2019-03-18] MEDS ORDERED: fentaNYL citrate 100 MCG/2 ML VIAL ONE (10:41)
[2019-03-18] MEDS ORDERED: MIDAZOLAM HCL 5 MG/ML 1 ML VIAL ONE (10:41)
[2019-03-18] MEDS ORDERED: BACITRACIN OINT 0.9 GM PKT ONE (10:43)
[2019-03-18] MEDS ORDERED: LIDOCAINE HCL 1% 20 ML VIAL ONE (10:43)
[2019-03-18] MEDS ORDERED: BACITRACIN INJ 50,000 UNIT VIAL ONE (10:43)
--- NOTE | 2019-03-18 10:54 | Cardiology Progress Note ---
Date of Service March 18, 2019 Assessment & Plan (1) Paroxysmal atrial fibrillation: (2) Sick sinus syndrome: Pacemaker planned today. Her CHADSVASC score is 6 predicting high risk of cardioembolic stroke. Will plan on starting DOAC or coumadin post pacemaker. (3) HTN (hypertension): Still uncontrolled. PO hydralazine x 1 now. Continue NECKTIE MAKER losartan and amlodipine. Post pacer will add metoprolol and perhaps transition from amlodipine to cardizem PO. Subjective CC: follow up palpitations Subjective: Pt comfortable. No complaints this am or overnight. Son at bedside. Review of Systems Review of Systems: All systems reviewed & are unremarkable except as noted in HPI & below Physical Exam Physical Exam: Temp Pulse Resp BP Pulse Ox 36.6 C 53 L 17 176/68 H 95 03/18/19 07:45 03/18/19 07:45 03/18/19 07:45 03/18/19 07:45 03/18/19 07:45 Constitutional: WD/WN, vitals as above Respiratory: normal respiratory effort, lungs clear to auscultation Cardiovascular: RRR, no murmur, no edema Neurologic: PERRL, EOMI, accommodation nl, no face palsy, no dysarthria Results & Data Vital Signs (Past 12 Hours) Vital Signs Temp Pulse Resp BP Pulse Ox Pulse Ox 03/18/19 07:45 36.6 C 53 L 17 176/68 H 95 03/18/19 03:00 36.4 C L 53 L 16 151/70 H 93 03/17/19 23:45 92 03/17/19 23:00 36.6 C 60 16 156/75 H 92 Laboratory Results Cardiac Enzymes 03/17/19 03/17/19 Range/Units 12:18 12:18 AST 15 (15-37) U/L Troponin I < 0.015 (0-0.045) ng/ml Coagulation 03/17/19 03/17/19 Range/Units 12:18 12:18 PT 10.3 (9.0-12.0) Seconds APTT 25.8 (21.0-31.0) Seconds CBC 03/17/19 03/18/19 Range/Units 12:18 05:47 WBC 9.25 8.02 (4.8-10.8) K/uL RBC 4.09 L 4.09 L (4.2-5.4) M/uL Hgb 12.6 12.4 (12.0-16.0) g/dL Hct 38.2 37.5 (37-47) % Plt Count 297 265 (130-400) K/uL Neut # (Auto) 6.44 (1.4-6.5) K/uL Lymph # (Auto) 1.79 (1.2-3.4) K/uL [place] # (Auto) 0.82 H (0.11-0.59) K/uL Eos # (Auto) 0.14 (0-0.5) K/uL Baso # (Auto) 0.04 (0-0.2) K/uL Comprehensive Metabolic Panel 03/17/19 03/18/19 Range/Units 12:18 05:47 Sodium 140 140 (136-145) mmol/L Potassium 4.2 4.0 (3.5-5.1) mmol/L Chloride 104 104 (98-107) mmol/L Carbon Dioxide 28 32 (21-32) mmol/L BUN 18 19 H (7-18) mg/dl Creatinine 0.86 0.72 (0.6-1.2) mg/dl Glucose 83 83 (70-99) mg/dl Calcium 9.1 8.7 (8.5-10.1) mg/dl AST 15 (15-37) U/L ALT 23 (12-78) U/L Alkaline Phosphatase 118 H (45-117) U/L Total Protein 7.4 (6.4-8.2) gm/dl Albumin 3.4 (3.4-5.0) gm/dl Intake and Output 03/17/19 03/18/19 03/18/19 22:59 06:59 14:59 Intake Total 120 / 120 Balance 120 / 120 Intake: Oral 120 / 120 Other: Other Intake Source npo # Unmeasured Voids 1 Weight 64.3 kg
[2019-03-18] MEDS ORDERED: HydrALAZINE 10 MG TAB PO ONE (11:00)
--- NOTE | 2019-03-18 12:10 | Pre Anesthesia Assessment ---
Date of Service March 18, 2019 Pre Sedation Assessment Vital Signs Temp Pulse Pulse Resp BP BP Pulse Ox 03/18/19 11:12 36.7 C 57 L 18 183/76 H 96 03/18/19 08:00 51 L 03/18/19 07:45 36.6 C 53 L 17 176/68 H 95 03/18/19 03:00 36.4 C L 53 L 16 151/70 H 93 03/17/19 23:45 03/17/19 23:00 36.6 C 60 16 156/75 H 92 03/17/19 18:49 37.0 C 68 17 186/74 H 94 03/17/19 18:07 36.6 C 89 51 L 16 172/73 H 96 03/17/19 17:43 57 L 16 177/77 H 95 03/17/19 16:30 74 24 200/95 H 96 03/17/19 16:00 56 L 22 185/72 H 96 03/17/19 15:30 54 L 20 160/69 H 96 03/17/19 15:01 64 25 H 199/72 H 95 03/17/19 14:55 58 L 24 171/63 H 93 03/17/19 13:30 59 L 23 178/71 H 96 03/17/19 13:00 50 L 22 157/76 H 95 03/17/19 12:30 52 L 17 148/62 H 93 03/17/19 12:21 94 03/17/19 12:18 53 L 20 163/64 H 94 Pulse Ox 03/18/19 11:12 03/18/19 08:00 03/18/19 07:45 03/18/19 03:00 03/17/19 23:45 92 03/17/19 23:00 03/17/19 18:49 03/17/19 18:07 96 03/17/19 17:43 03/17/19 16:30 03/17/19 16:00 03/17/19 15:30 03/17/19 15:01 03/17/19 14:55 03/17/19 13:30 03/17/19 13:00 03/17/19 12:30 03/17/19 12:21 03/17/19 12:18 Cardiovascular + regular rate and + bradycardic Respiratory normal respiratory effort, lungs clear to auscultation Pre-Sedation Airway Assessment Smoking Status: Never smoker Hx Sleep Apnea: No Hx Difficult Intubation: No Short, Thick Neck: No Thyromental Distance: < 3.5 Finger Breadths Mallampati Class: II ASA: ASA3 NPO Status Date of Last Intake of Fluids: 03/17/19 Date of Last Intake of Solid Food: 03/17/19 Procedure Planning Contraindications for Sedation: none Current Medications Reviewed: Yes Notes The planned sedation has been discussed with the patient. Informed Consent was obtained. I have identified the patient, determined the appropriateness of sedation and have assessed the patient immediately prior to the procedure. All medicine(s) and interventions are by my order.
--- NOTE | 2019-03-18 13:09 | Operative Report ---
Post Operative Report Pre & Post Diagnosis Operation Date: 03/18/19 11:00 Preoperative diagnosis: Tachybradycardia syndrome and sinus node dysfunction Postoperative diagnosis: Same Procedure Operation Date: 03/18/19 11:00 Actual Procedures p Pacemaker Insertion - Manjinder Corbett MD Surgeon Manjinder Corbett MD Clinic Office Manager None Estimated Blood Loss 20 Findings Consistent with Post-Op Diagnosis Good lead position, excellent measurements Specimens None Anesthesia Type Local Complications none Disposition Accompanied Patient To Recovery: Yes Disposition: Recovery Room Description of Procedure After obtaining informed consent for the procedure, the patient was brought to the laboratory and prepped and draped in the standard sterile manner. The left prepectoral region was anesthetized with 1% lidocaine local anesthetic and left axillary venipuncture was performed by percutaneous technique and a guidewire placed through the left subclavian vein into the superior vena cava. The area was further infiltrated with 1% lidocaine local anesthetic and a 5 cm incision was made parallel to the left clavicle and 2 cm below it and carried down to the anterior pectoralis fascia. A pacemaker pocket was formed by blunt dissection anterior to the pectoralis fascia and a bacitracin-soaked sponge (50,000 units in 50 cc normal saline solution) was placed in the pocket. An 8 Armenian Medtronic lead introducer was placed over the guidewire into the left subclavian vein, the dilator and guidewire were removed and a bipolar active fixation steroid tipped ventricular lead was advanced through the introducer into the superior vena cava. A guidewire was placed through the introducer and the introducer was stripped from the lead and guidewire. Another 8 Armenian Medtronic lead introducer was placed over the guidewire into the left subclavian vein, the dilator and guidewire were removed and a bipolar active fixation steroid tipped atrial lead was advanced through the introducer into the superior vena cava. A guidewire was placed back through the introducer and the introducer was stripped from the lead and guidewire. Using a curved stylette the ventricular lead was advanced through the right ventricular outflow tract into the pulmonary artery and then using a straight stylette was positioned in the right ventricular apex. The screw was extended fixing the lead in position. Pacing and sensing thresholds were evaluated in bipolar configuration and are recorded on the implant data sheet. Using a curved stylette the atrial lead was positioned in the region of the atrial appendage and the screw extended fixing the lead in position. Pacing and sensing thresholds were evaluated in bipolar configuration and are recorded on the implant data sheet. Once the leads were in position they were attached to the anterior pectoralis fascia using 2 sutures of 2-0 silk around each lead collar. The bacitracin- soaked sponge was removed from the pocket, hemostasis was obtained, the pacemaker was attached to the leads and placed in the pocket with the leads coiled beneath it. The incision was closed with a running double subcutaneous closure of 3-0 Vicryl absorbable suture, followed by running subcuticular skin closure of 4-0 Vicryl absorbable suture. Bacitracin ointment was placed on the incision and a pressure dressing applied. I attest to the content of the Intraoperative Record and any orders documented therein. Any exceptions are noted below.
[2019-03-18] MEDS ORDERED: ACETAMINOPHEN W/CODEINE #3 1 TAB PO PRN (13:11)
[2019-03-18] MEDS ORDERED: ACETAMINOPHEN 325 MG TAB PO PRN (13:11)
[2019-03-18] MEDS ORDERED: METOPROLOL TARTRATE 50 MG TAB PO STA (13:17)
--- NOTE | 2019-03-18 13:49 | Post Anesthesia Assessment ---
Date of Service March 18, 2019 Post Sedation Assessment Vital Signs Temp Pulse Pulse Resp BP BP Pulse Ox 03/18/19 11:12 36.7 C 57 L 18 183/76 H 96 03/18/19 08:00 51 L 03/18/19 07:45 36.6 C 53 L 17 176/68 H 95 03/18/19 03:00 36.4 C L 53 L 16 151/70 H 93 03/17/19 23:45 03/17/19 23:00 36.6 C 60 16 156/75 H 92 03/17/19 18:49 37.0 C 68 17 186/74 H 94 03/17/19 18:07 36.6 C 89 51 L 16 172/73 H 96 03/17/19 17:43 57 L 16 177/77 H 95 03/17/19 16:30 74 24 200/95 H 96 03/17/19 16:00 56 L 22 185/72 H 96 03/17/19 15:30 54 L 20 160/69 H 96 03/17/19 15:01 64 25 H 199/72 H 95 03/17/19 14:55 58 L 24 171/63 H 93 Pulse Ox 03/18/19 11:12 03/18/19 08:00 03/18/19 07:45 03/18/19 03:00 03/17/19 23:45 92 03/17/19 23:00 03/17/19 18:49 03/17/19 18:07 96 03/17/19 17:43 03/17/19 16:30 03/17/19 16:00 03/17/19 15:30 03/17/19 15:01 03/17/19 14:55 Recovery Score Activity: Moves 4 extremities Respiration: Deep Breath/Cough Consciousness: Fully Awake Oxygen Saturation: > 92% On Room Air Discharge Sedation Level of Care: Fast Track Phase II Post Sedation Plan On clinical assessment, the patient appears to have tolerated the sedation without complications. Patient is recovering as anticipated. Patient will continue to be monitored by nursing and may be discharged when sedation discharge criteria are met per below protocol. Upon Completions of procedure and additional 15 minutes continue every 5 minute vital signs and the P.A.R. score; then discharge to a Phase I or Fast Track to Phase II per the following guidelines: * Discharge Patient to appropriate Phase II area if PAR is 8 or greater or return to pre- procedure baseline. The post - procedure orders will be as directed. * If PAR score is less than 8 or not return to pre-procedure baseline then patient will follow Phase I monitoring till PAR is reached for Phase II. The Phase I may be done in procedure room or may call to secure a Phase I area. * If naloxone or flumazenil are used for reversal, hold in Phase I for continued monitoring from when last reversal dose was given for a minimum of 60 minutes or longer pending the nurse and/or physician discretion of patient condition before discharge to Phase II. Please call the Sedation Physician to re-evaluate and complete post-note for discharge to Phase II area. Do NOT discharge from procedure sedation or Phase 1 until post- sedation evaluation note is complete by procedure /sedation MD Sedation Discharge Instructions to be given to the patient at discharge to home.
[2019-03-18] MEDS ORDERED: AMLODIPINE BESYLATE 5 MG TAB PO SCH (16:00)
--- NOTE | 2019-03-18 18:23 | Hospitalist Progress Note ---
Date of Service March 18, 2019 Assessment & Plan (1) Sick sinus syndrome: This is an 88yo F with a PMH of HTN, h/o CVA (lacunar stroke in Apr 2017), PVD, CKD III, and other medical problems listed below who presents with abnormal results on ZIO heart monitor and was found to have sick sinus syndrome. -Had episode of palpitations 2 weeks ago, OP ZIO monitor with varying HR from 40s-190s with 47% atrial fibrillation. Also revealed a 6 second pause on Mar 08 -Asymptomatic on admission. EKG with sinus bradycardia at 59 bpm -Status post permanent pacemaker placement this morning -Appreciate cardiology input and recommendation -She remains a stable without any significant symptoms (2) Paroxysmal atrial fibrillation: Noted to have atrial fibrillation on ZIO monitor 47% of the time -CHADSVASC score is 6. Per cardiology, will start systemic anticoagulation with coumadin or a direct oral anticoagulant after pacemaker placement -Likely to have Coumadin and/or DOAC from tomorrow (3) HTN (hypertension): Continue losartan 50mg daily and amlodipine 2.5mg daily -Plan to add AV herb blockers such as diltiazem and /or metoprolol post pacemaker -Continue current medications -The blood pressure remains stable (4) HLD (hyperlipidemia): Continue statin (5) H/O: CVA (cerebrovascular accident): History of lacunar infarct in Apr 2017, no residual deficits -Continue baby aspirin, statin -No acute issues (6) Macular degeneration: Continue AREDS 2 multivitamin DVT Ppx: SCDS Code status: FULL PCP: Crystal Dispo: Admitted to telemetry. Plan to return home once medically stable. Possible discharge tomorrow Subjective 03/18 The patient was seen and examined in telemetry unit She was admitted for pacemaker placement secondary to sick sinus syndrome noted on Zio patch She denies any symptoms following the procedure No chest pain, shortness of breath, palpitation and no dizziness Review of Systems Review of Systems: All systems reviewed and are unremarkable except as noted. Respiratory: no dyspnea Cardiovascular: no chest pain, no palpitations and no lightheadedness Physical Exam Physical Exam: Lying in bed comfortably Constitutional: + thin; not ill appearing Eyes: PERRL, conjunctivae normal, anicteric sclerae ENMT: Mallampati Class: II Respiratory: normal respiratory effort, lungs clear to auscultation Cardiovascular: RRR, no murmur, no edema Rate/Rhythm: regular rate and + bradycardic Gastrointestinal (Abdomen): normal bowel sounds, soft, nontender, no hepatosplenomegaly Musculoskeletal: No acute arthritis in any of the joint Neurologic: PERRL, EOMI, accommodation nl, no face palsy, no dysarthria Results & Data Vital Signs (Past 12 Hours) Vital Signs Temp Pulse Pulse Resp BP Pulse Ox 03/18/19 18:00 60 16 142/59 H 96 03/18/19 17:30 62 18 135/88 95 03/18/19 17:00 62 17 138/70 95 03/18/19 16:30 60 17 145/62 H 95 03/18/19 16:00 36.9 C 60 18 143/77 H 94 03/18/19 14:30 64 16 145/75 H 94 03/18/19 14:26 71 16 156/74 H 03/18/19 14:16 16 167/76 H 95 03/18/19 13:56 59 L 16 162/82 H 94 03/18/19 13:41 74 16 157/72 H 94 03/18/19 13:26 36.7 C 75 16 162/75 H 95 03/18/19 13:11 36.5 C 75 14 162/75 H 96 03/18/19 11:12 36.7 C 57 L 18 183/76 H 96 03/18/19 08:00 51 L 03/18/19 07:45 36.6 C 53 L 17 176/68 H 95 Laboratory Results Short CBC 03/18/19 Range/Units 05:47 WBC 8.02 (4.8-10.8) K/uL Hgb 12.4 (12.0-16.0) g/dL Hct 37.5 (37-47) % Plt Count 265 (130-400) K/uL BMP 03/18/19 05:47 Sodium 140 Potassium 4.0 Chloride 104 Carbon Dioxide 32 BUN 19 H Creatinine 0.72 Glucose 83 Calcium 8.7 Medications Administered Current Inpatient Medications Acetaminophen (Tylenol) 650 mg PO Q4H PRN PRN Reason: Pain or Fever Stop: 04/16/19 18:06 Acetaminophen/Codeine Phosphate (Tylenol W/Codeine #3) 1 - 2 tab PO Q4H PRN PRN Reason: Moderate-Severe Pain Stop: 04/17/19 13:10 Amlodipine Besylate (Norvasc) 2.5 mg PO DAILY@1600 [facility] Stop: 04/17/19 15:59 Last Admin: 03/18/19 17:14 Dose: 2.5 mg Documented by: Ascorbic Acid (Vitamin C) 1,000 mg PO DAILY ISI Stop: 04/17/19 08:59 Last Admin: 03/18/19 08:02 Dose: 1,000 mg Documented by: Aspirin (Ecotrin Ectab) 81 mg PO DAILY ISI Stop: 04/17/19 08:59 Last Admin: 03/18/19 08:02 Dose: 81 mg Documented by: Atorvastatin Calcium (Lipitor) 40 mg PO DAILY ISI Stop: 04/17/19 08:59 Last Admin: 03/18/19 08:02 Dose: 40 mg Documented by: Calcium Carbonate (Os-Nilesh 500) 2,500 mg PO DAILY ISI Stop: 04/17/19 08:59 Last Admin: 03/18/19 08:01 Dose: 2,500 mg Documented by: Cyanocobalamin (Vitamin B-12) 1,000 mcg PO DAILY [facility] Stop: 04/17/19 08:59 Last Admin: 03/18/19 08:03 Dose: 1,000 mcg Documented by: Hydralazine HCl (Hydralazine Hcl) 5 mg IV ONE PRN PRN Reason: SBP >170 Stop: 04/16/19 17:06 Losartan Potassium (Cozaar) 50 mg PO DAILY ISI Stop: 04/17/19 08:59 Last Admin: 03/18/19 08:01 Dose: 50 mg Documented by: Metoprolol Succinate (Toprol Xl) 50 mg PO QAM [facility] Stop: 04/18/19 08:59 Multivitamins/Minerals (Multivitamin W/ Minerals Tab) 1 tab PO BID [facility] Stop: 04/16/19 20:59 Last Admin: 03/18/19 08:01 Dose: 1 tab Documented by: Pantoprazole Sodium (Protonix) 40 mg PO DAILY [facility]; Protocol Stop: 04/17/19 08:59 Last Admin: 03/18/19 08:02 Dose: 40 mg Documented by: Polyethylene Glycol (Miralax Powder Packet) 17 gm PO DAILY PRN PRN Reason: Constipation Stop: 04/16/19 18:06 Vitamin D (Vitamin D3) 1,000 units PO DAILY [facility] Stop: 04/17/19 08:59 Last Admin: 03/18/19 08:02 Dose: 1,000 units Documented by: Vitamin E (Vitamin E) 800 units PO DAILY [facility]I Stop: 04/17/19 08:59 Last Admin: 03/18/19 08:03 Dose: 800 units Documented by:
[2019-03-19 05:54] LABS: Basophils # (auto) 0.04 K/uL (0-0.2); Basophils % (auto) 0.4 %; Eosinophils # (auto) 0.26 K/uL (0-0.5); Eosinophils % (auto) 2.4 %; Hematocrit (blood only) 37.9 % (37-47); Hemoglobin 12.6 g/dL (12.0-16.0); Immature Granulocytes # (auto) 0.03 K/uL (0.00-0.02); Immature Granulocytes % (auto) 0.3 %; Lymphocytes # (auto) 2.02 K/uL (1.2-3.4); Lymphocytes % (auto) 18.4 %; Mean Corpuscular Hemoglobin 30.6 pg (25-34); Mean Corpuscular Hgb Conc 33.2 g/dL (32-36); Mean Platelet Volume 9.9 fL (7.4-10.4); Monocytes # (auto) 0.92 K/uL (0.11-0.59); Monocytes % (auto) 8.4 %; Neutrophils # (auto) 7.71 K/uL (1.4-6.5); Neutrophils % (auto) 70.1 %; Platelet Count 266 K/uL (130-400); RDW Coefficient of Variation 13.3 % (11.5-14.5); RDW Standard Deviation 44.7 fL (36.4-46.3); Red Blood Count 4.12 M/uL (4.2-5.4); White Blood Count 10.98 K/uL (4.8-10.8)
[2019-03-19 06:20] LABS: BUN Creatinine Ratio 24.4 (10-20); Calcium 9.1 mg/dl (8.5-10.1); Creatinine Clr Calc Pharmacy 39.9 ml/min; Est GFR (African American) 72.4; Est GFR (Non-African American) 62.5; Magnesium 2.1 mg/dl (1.8-2.4); Potassium 3.9 mmol/L (3.5-5.1)
--- NOTE | 2019-03-19 07:38 | XRay Report ---
XR chest 2V routine CLINICAL HISTORY: Pacemaker insertion. COMPARISON STUDY: Chest radiograph March 17, 2019. FINDINGS: There is no pneumothorax following placement of a dual lead left subclavian pacemaker. Lead tips project over the right atrial appendage and right ventricle. Mild elevation of the right hemidi aphragm is unchanged. There is no evidence for pulmonary edema or pneumonia. IMPRESSION: No pneumothorax following placement of a dual lead left subclavian pacemaker. Electronically signed by: Mauricio Gonzalez M.D. 03/19/2019 7:36 AM
[2019-03-19] MEDS: ASCORBIC ACID 500 MG TAB PO SCH (08:56)
[2019-03-19] MEDS: CHOLECALCIFEROL 1,000 UNITS TAB PO SCH (08:56)
[2019-03-19] MEDS: CYANOCOBALAMIN 500 MCG TABLET (VITAMIN B-12) PO SCH (08:56)
[2019-03-19] MEDS: TOCOPHERYL, DL-ALPHA 400 UNITS CAP PO SCH (08:56)
[2019-03-19] MEDS: CEROVITE ADV FORMULA TAB PO SCH (08:57)
[2019-03-19] MEDS: CALCIUM CARBONATE 1250MG TAB PO SCH (08:57)
[2019-03-19] MEDS: LOSARTAN POTASSIUM 50 MG TAB PO SCH (08:58)
[2019-03-19] MEDS: ATORVASTATIN 40 MG TAB PO SCH (08:58)
[2019-03-19] MEDS: ASPIRIN 81 MG ECTAB PO SCH (08:58)
[2019-03-19] MEDS: PANTOprazole 40 MG TAB PO SCH (08:58)
[2019-03-19] MEDS ORDERED: METOPROLOL SUCC 50MG EXT REL TAB PO SCH (09:00)
--- NOTE | 2019-03-19 10:18 | Cardiology Progress Note ---
Date of Service March 19, 2019 Assessment & Plan (1) Status post placement of cardiac pacemaker: She is doing well postop day #1. The site looks good, the pacer is working well and the chest x-ray looks good. She is stable for discharge. I will leave follow-up arrangements to anju. Subjective She is feeling well today, she has slight pulling sensation at her pacer site but no real discomfort. No chest discomfort. Physical Exam Physical Exam: The pacemaker site looks clean and dry, there is no bleeding and no swelling. No significant ecchymosis. No tenderness. Results & Data Vital Signs (Past 12 Hours) Vital Signs Temp Pulse Pulse Resp BP Pulse Ox 03/19/19 08:00 64 03/19/19 07:03 36.7 C 60 18 155/74 H 94 03/19/19 03:15 36.7 C 60 18 121/72 93 03/18/19 23:00 36.7 C 60 18 128/71 93 03/18/19 22:28 64 Diagnostic Findings Electrocardiogram: Sinus rhythm with intermittent atrial pacing appropriately. Telemetry: Sinus with intermittent atrial pacing appropriately. Chest x-ray: Good lead position, no pneumothorax Pacemaker evaluation: Excellent pacing and sensing characteristics PG Care Time/CCT Total # of Minutes Spent Total Time Spent with Patient: Total time spent is greater than 50% in coordination of care (as documented) at patient's floor/unit and/or counseling patient:
--- NOTE | 2019-03-19 11:57 | Cardiology Progress Note ---
Date of Service March 19, 2019 Assessment & Plan (1) Tachy-citlaly syndrome: (2) Paroxysmal atrial fibrillation: (3) Sinus node dysfunction: (4) Status post placement of cardiac pacemaker: (5) HTN (hypertension): Patient is status post dual-chamber Medtronic permanent pacemaker perform ed 03/18/2019. Metoprolol succinate 50 mg started post device, and her blood pressure is currently well controlled. As previously noted her [id number] score is 6 predicting a high risk of cardio embolic stroke, and she does have a history of past stroke in 2017. I had my office look into the patient's out of pocket cost for Eliquis. Her [id number] cost for a 30-day supply was $47, and $117.50 for a 90-day supply. This is considered prohibitive. Therefore we will start her on Coumadin for stroke prophylaxis. The patient is from [place]. She has a history of macular degeneration and does not drive. She states she will have to find help getting a ride to the anticoagulation clinic appointments. We will arrange for her to establish with the [facility] anticoagulation clinic at [place] where she may have her INR performed, or perhaps closer to home with telephone follow-up. Today we will start Coumadin 2.5 mg now and daily and will allow her INR to trend up slowly post device to reduce risk of pocket hematoma. Case discussed with Dr Nunez. Disposition: Patient is to have wound check/pacemaker interrogation on 03/28/2019, 2:30 PM, Erick Lozada. She is to have a follow-up appointment with Dr. Mehran Langford on 04/15/2019, 10:30 AM, Erick Lozada. Subjective Chief complaint: Follow-up palpitations Subjective: Patient feeling well. She underwent a dual-chamber Medtronic pacemaker yesterday and tolerated the procedure well. Overnight sinus rhythm with atrial pacing in the range of 60 bpm was noted without recurrence of atrial fibrillation. Review of Systems Review of Systems: All systems reviewed & are unremarkable except as noted in HPI & below Physical Exam Physical Exam: Temp Pulse Resp BP Pulse Ox 36.9 C 62 17 106/68 94 03/19/19 11:45 03/19/19 11:45 03/19/19 11:45 03/19/19 11:45 03/19/19 11:45 Constitutional: WD/WN, vitals as above Respiratory: normal respiratory effort, lungs clear to auscultation Cardiovascular: RRR, no murmur, no edema Vessels: no JVD Skin: Left infraclavicular pacemaker pocket dressed, it is previously been examined by Dr. Corbett, at which time the bandage was changed. I did not take it off again. Neurologic: PERRL, EOMI, accommodation nl, no face palsy, no dysarthria Results & Data Vital Signs (Past 12 Hours) Vital Signs Temp Pulse Pulse Resp BP Pulse Ox 03/19/19 11:45 36.9 C 62 17 106/68 94 03/19/19 08:00 64 03/19/19 07:03 36.7 C 60 18 155/74 H 94 03/19/19 03:15 36.7 C 60 18 121/72 93 Diagnostic Findings EKG performed post device, 03/19/2019 6:16 AM: Sinus rhythm with atrial pacing at 60 bpm, with prolonged AV delay, normal repolarization, normal corrected QT interval of 448 ms
--- NOTE | 2019-03-19 12:03 | Hospitalist Progress Note ---
Date of Service March 19, 2019 Assessment & Plan (1) Sick sinus syndrome: This is an 88yo F with a PMH of HTN, h/o CVA (lacunar stroke in Apr 2017), PVD, CKD III, and other medical problems listed below who presents with abnormal results on ZIO heart monitor and was found to have sick sinus syndrome. S/P pacemaker placement yesterday by Dr. Corbett No post op complication Pacer is working fine CXR this morning showed no pneumothorax following placement of a dual lead left subclavian pacemaker. OK from cardiology to discharge home today Patient is to have wound check/pacemaker interrogation on 03/28/2019, 2:30 PM, Erick Lozada. She is to have a follow-up appointment with Dr. Mehran Langford on 04/15/2019, 10:30 AM, Erick Lozada. (2) Paroxysmal atrial fibrillation: Noted to have atrial fibrillation on ZIO monitor 47% of the time CHADSVASC score is 6. Case discussed with Cardiology Dr. Burns recommended to start on anticoagulant Will start on coumadin 2.5 mg daily for now Check for DOAC, Danitza who is the preferred on her plan will cost her more than $100 for 3 months. Will refer to the coumadin clinic (Pt lives in [place], Closest coag clinic in [place] Will monitor PT/INR (3) HTN (hypertension): Continue losartan 50mg daily and amlodipine 2.5mg daily On Metoprolol succinate 50mg daily BP stable (4) HLD (hyperlipidemia): Continue statin (5) H/O: CVA (cerebrovascular accident): History of lacunar infarct in Apr 2017, no residual deficits Continue baby aspirin, statin Stable (6) Macular degeneration: Continue AREDS 2 multivitamin DVT Ppx: SCDS Code status: FULL Dispo: Discharge home today Patient is to have wound check/pacemaker interrogation on 03/28/2019, 2:30 PM, Erick Lozada. She is to have a follow-up appointment with Dr. Mehran Langford on 04/15/2019, 10:30 AM, Erick Lozada. Follow up with the coag clinic (Message sent to the coag clinic for follow up) Follow up with Primary care provider Dr. Floyd on 03/25 @ 10:45 AM Subjective Pt was seen and examined Sitting at the edge of the bed with no distress eating her lunch Pt said that she did not sleep much last night because of too much in/out from her room She said that she feels fine She is asking if she can go home today Denies any chest pain, palpitation, dizziness and SOB Physical Exam Physical Exam: General- No acute distress Head- atraumatic Eyes- PERRL, EOMI, ENT- oropharynx clear Neck- supple, no JVD Lungs- clear to auscultation Heart- regular rhythm; no murmur Chest- Dressing clean from the pacemaker incision Abdomen- normal bowel sounds, soft, nontender Extremities- no calf tenderness Neuro- alert, oriented x 3; PERRL, EOMI; no facial palsy; no dysarthria Skin- warm & dry Results & Data Vital Signs (Past 12 Hours) Vital Signs Temp Pulse Pulse Resp BP Pulse Ox 03/19/19 11:45 36.9 C 62 17 106/68 94 03/19/19 08:00 64 03/19/19 07:03 36.7 C 60 18 155/74 H 94 03/19/19 03:15 36.7 C 60 18 121/72 93
[2019-03-19] MEDS ORDERED: WARFARIN SOD 2.5 MG TAB PO SCH (16:00)
--- NOTE | 2019-03-20 07:33 | Discharge Summary ---
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 Earlier this month on Mar 02, patient experienced a 90-minute episode of heart racing and associated lightheadedness before symptoms resolved. Had her vitals taken by nurse [facility] and was advised to go to ED but decided to follow-up at previously scheduled clinic appointment 2 days later. Was placed on a 7-day ZIO heart monitor that showed varying HR from 40s-190s with 47% atrial fibrillation. Also revealed a 6 second pause on Mar 08. PCP made aware of monitored findings today and spoke with Dr. López in clinic, who advised that patient come to ED for further evaluation and likely pacemaker placement. Currently, patient is asymptomatic. Granddaughter at bedside. Denies fever, chills, headache, lightheadedness, visual changes, chest pain, palpitations, shortness of breath, abdominal pain, nausea, vomiting, dysuria, constipation or diarrhea. Patient is active and lives at [facility] in [place]. Manages own medications and ambulates independently. Admission Exam Per Admitting Provider General Appearance: WD/WN, vitals as above, NAD, sitting up in bed, pleasant, conversing easily Head: normocephalic, atraumatic Eyes: Blind L eye, PERRL, conjunctivae normal, anicteric sclerae ENT: external ear and nose normal, oropharynx normal Neck: trachea midline, no thyromegaly normal visual inspection Respiratory: lungs clear to auscultation, no wheeze, rales, rhonchi. Normal insp/exp effort, no accessory muscle use Cardiovascular: regular rate, rhythm, no murmur appreciated, normal peripheral pulses. Vessels: no JVD or carotid bruit Chest: normal inspection of chest Abdomen/GI: normal bowel sounds, soft, nontender, no hepatosplenomegaly Extremities/Musculoskelatal: no cyanosis or clubbing, extremities motor strength 5/5 Neurologic: PERRL, EOMI, accommodation nl, no face palsy, no dysarthria CN's II-XI intact bilaterally and moves all extremities Psychiatric: A+Ox3, euthymic affect Skin: no rashes, normal color, warm/dry Principal Diagnosis (1) Tachy-citlaly syndrome: (2) Paroxysmal atrial fibrillation: (3) Sinus node dysfunction: (4) Status post placement of cardiac pacemaker: (5) HTN (hypertension): Discharge Exam General- No acute distress Head- atraumatic Eyes- PERRL, EOMI, ENT- oropharynx clear Neck- supple, no JVD Lungs- clear to auscultation Heart- regular rhythm; no murmur Chest- Dressing clean from the pacemaker incision Abdomen- normal bowel sounds, soft, nontender Extremities- no calf tenderness Neuro- alert, oriented x 3; PERRL, EOMI; no facial palsy; no dysarthria Skin- warm & dry Discharge Data Allergies Allergy/AdvReac Type Severity Reaction Status Date / Time triamterene Allergy Rash Unverified 03/17/19 13:02 amoxicillin AdvReac Unknown Unverified 03/17/19 13:01 lisinopril AdvReac Cough Unverified 03/17/19 13:01 NSAIDS (Non-Steroidal AdvReac Hypertensio Unverified 03/17/19 13:01 Anti-Inflamma n Consultations 03/17/19 14:15 ED Decision to Admit Stat 03/17/19 15:21 Consult Cardiac Electrophysiology Stat 03/17/19 18:07 Consult Cardiology Routine Consult Case Management - Discharge Planning Routine Procedures Performed Operation Date: 03/18/19 11:00 Actual Procedures p Pacer with A/V Leads (Dual) - Manjinder Corbett MD Ordered Studies 03/18/19 07:04 CL Cath Imgs for PACS use only Routine XR chest 2V routine CLINICAL HISTORY: Pacemaker insertion. COMPARISON STUDY: Chest radiograph March 17, 2019. FINDINGS: There is no pneumothorax following placement of a dual lead left subclavian pacemaker. Lead tips project over the right atrial appendage and right ventricle. Mild elevation of the right hemidiaphragm is unchanged. There is no evidence for pulmonary edema or pneumonia. IMPRESSION: No pneumothorax following placement of a dual lead left subclavian pacemaker. Electronically signed by: Mauricio Gonzalez M.D. 03/19/2019 7:36 AM Dictated: 03/19/19732 Transcribed: 03/19/19732 SINGLE VIEW CHEST CLINICAL HISTORY: Palpitations. FINDINGS: An AP, portable, upright chest radiograph is obtained. No prior studies are available for comparison at the time of dictation. The heart is top normal for projection, noting atherosclerotic calcification of the thoracic aorta. There is elevation of right hemidiaphragm and bibasilar atelectasis. The lungs and pleural spaces are otherwise clear. No pneumothorax is seen. The skeletal structures are osteopenic. The bony thorax is grossly intact. IMPRESSION: No active disease in the chest. Electronically signed by: Justino Peralta M.D. 03/17/2019 1:31 PM Dictated: 03/17/19 1330 Transcribed: 03/17/19 1330 Hospital Course (1) Sick sinus syndrome: This is an 88yo F with a PMH of HTN, h/o CVA (lacunar stroke in Apr 2017), PVD, CKD III, and other medical problems listed below who presents with abnormal results on ZIO heart monitor and was found to have sick sinus syndrome. S/P pacemaker placement yesterday by Dr. Corbett No post op complication Pacer is working fine CXR this morning showed no pneumothorax following placement of a dual lead left subclavian pacemaker. OK from cardiology to discharge home today Patient is to have wound check/pacemaker interrogation on 03/28/2019, 2:30 PM, Erick Lozada. She is to have a follow-up appointment with Dr. Mehran Langford on 04/15/2019, 10:30 AM, Erick Lozada. (2) Paroxysmal atrial fibrillation: Noted to have atrial fibrillation on ZIO monitor 47% of the time CHADSVASC score is 6. Case discussed with Cardiology Dr. Burns recommended to start on anticoagulant Will start on coumadin 2.5 mg daily for now Check for DOAC, Danitza who is the preferred on her plan will cost her more than $100 for 3 months. Will refer to the coumadin clinic (Pt lives in [place], Closest coag clinic in [place] Will monitor PT/INR (3) HTN (hypertension): Continue losartan 50mg daily and amlodipine 2.5mg daily On Metoprolol succinate 50mg daily BP stable (4) HLD (hyperlipidemia): Continue statin (5) H/O: CVA (cerebrovascular accident): History of lacunar infarct in Apr 2017, no residual deficits Continue baby aspirin, statin Stable (6) Macular degeneration: Continue AREDS 2 multivitamin DVT Ppx: SCDS Code status: FULL Dispo: Discharge home today Patient is to have wound check/pacemaker interrogation on 03/28/2019, 2:30 PM, Erick Lozada. She is to have a follow-up appointment with Dr. Mehran Langford on 04/15/2019, 10:30 AM, Erick Lozada. Follow up with the coag clinic (Message sent to the coag clinic for follow up) Follow up with Primary care provider Dr. Floyd on 03/25 @ 10:45 AM Total Time Total Time Spent Total Time Spent (In Minutes): 35 minutes Total Time Includes: Examination of the Patient, Discharge Planning, Medication Reconciliation, Communication With Other Providers and Other Discharge Plan Discharge Items Patient Disposition: Home - Self-Care Reason For Visit: TACHYBRADY SYNDROME Discharge Diagnosis: (1) Tachy-citlaly syndrome: (2) Paroxysmal atrial fibrillation: (3) Sinus node dysfunction: (4) Status post placement of cardiac pacemaker: (5) HTN (hypertension): Activity: Resume your previous activity Non-emergency contact: Primary Care Provider and Clinical Unit Educator Call non-emergency contact if: you have any medication questions, your temperature is above 101, your wound has increased redness, your wound has increased drainage and your wound pain has increased Follow-up/Referrals: Rufina Rojas DO [Primary Care Provider] - Diet: Heart Healthy Addtl Attending Provider Instructions: Follow up for wound check/pacemaker interrogation on 03/28/2019, 2:30 PM, Erick Lozada. Follow-up appointment with Cardiology Dr. Mehran Langford on 04/15/2019, 10:30 AM, Erick Lozada. Follow up with the coumadin clinic (Message sent to the coumadin clinic for follow up) (Clinic will contact you for the appointment) Follow up with Primary care provider Dr. Floyd on 03/25 @ 10:45 AM Check PT/INR on fall precaution Avoid high level activity Monitor for abnormal bleeding Don't drive until your doctor says it's OK. OK to shower tomorrow Do not lift the left elbow over the left shoulder for 1 month Do not lift no more than 10 lbs for 1 week Do not stretch your arm behind your back for as long as directed by your doctor. Keep incision area clean and dry Check your incision area for signs of infection (redness, swelling, drainage, or warmth). Before you receive any treatment, tell all healthcare providers (including your dentist) that you have a pacemaker. Keep your cell phone away from your pacemaker. Don't carry the phone in your shirt pocket overlying the pacemaker, even when it's turned off. Avoid strong magnets If you order for an MRI in the future, please inform that you have a pacemaker Medication Instructions: Coumadin Warfarin is a medicine prescribed to prevent blood clots and stroke Warfarin will thin your blood and help prevent clots formation Take your medications exactly as directed Never skip a dose. Never take a double dose. If you miss a dose, take it as soon as you remember It is important for your doctor to monitor your prothrombin time (PT). This is a lab test Keep your appointment for lab tests Risk of Adverse Drug Reactions and Interactions: Warfarin increases your risk of bleeding The food you eat and other medications you take can affect how Warfarin works in your body Ask your doctor about daily aspirin therapy It is very important to talk with your doctor about all of the other medicines, antibiotics, vitamins or herbal products that you are taking All of your medication must be approved by your doctor, including new medicines, as well as medicines you have taken before you started taking Warfarin Avoid NSAIDs (Motrin, Aleve, Naproxen, Ibuprofen, Advil, Meloxicam,..) due to risks of bleeding Diet: In order for Warfarin to work properly, it is important to keep your intake of Vitamin K as consistent as possible You should avoid any sudden change in Vitamin K intake Report any significant changes in your diet or weight to your doctor Call your Primary Care doctor if you experience any of the following: Swelling or Pain in your leg Sudden, continuous pain deep in a muscle Pain that worsens when you are active or when you stand still for a long time Chest Pain Sudden Shortness of Breath Rapid or pounding heart beat Fainting Dizziness Cough with blood or bloody sputum Sweating more than normal Bruises Heavy or uncontrolled bleeding Blood in your urine, stool or vomit Black or tarry stools It is important for you to keep your follow up appointments with your medical provider. Pending Studies at Discharge: No Stand-Alone Forms: [facility] [employer] Medications and DC Order Prescriptions: New warfarin [Coumadin] 2.5 mg Tablet 2.5 mg PO DAILY@1600 30 Days Qty: 30 RF: 0 metoprolol succinate 50 mg Tablet Extended Release 24 Hr 50 mg PO QAM Qty: 30 RF: 0 Continued losartan 50 mg Tablet 50 mg PO DAILY RF: 0 atorvastatin 40 mg Tablet 40 mg PO DAILY RF: 0 vitamin E 1,000 unit Capsule 1,000 unit PO DAILY RF: 0 ascorbic acid (vitamin C) 1,000 mg Tablet 1 g PO DAILY RF: 0 amlodipine 2.5 mg Tablet 2.5 mg PO DAILY@1620 RF: 0 aspirin 81 mg Tablet,Delayed Release (Dr/Ec) 81 mg PO DAILY RF: 0 omeprazole 20 mg Capsule,Delayed Release(Dr/Ec) 20 mg PO DAILY RF: 0 cholecalciferol (vitamin D3) 1,000 unit Capsule 1,000 unit PO DAILY RF: 0 lutein 20 mg Tablet 20 mg PO DAILY RF: 0 cyanocobalamin (vitamin B-12) 1,000 mcg Capsule 1,000 mcg PO DAILY RF: 0 Glucosamine Chondroitin 550-30-1 mg Capsule 1 cap PO BID RF: 0 calcium carbonate [Calcium 500] 500 mg calcium (1,250 mg) Tablet 1,000 mg PO DAILY RF: 0 diphenhydramine-acetaminophen [Tylenol PM Extra Strength] 25-500 mg Tablet 1 tab PO HS PRN (Reason: Insomnia) RF: 0 PreserVision AREDS-2 [id number] [id number] Capsule 1 tab PO BID RF: 0 Discontinued multivitamin Tablet 1 tab PO DAILY RF: 0 Discharge Orders: Discharge Order (Routine); Ordered 03/19/19 Ordered By: Randy French Admission Data Admit Date/Time: 03/17/19 14:53 Attending Provider: Randy French Admit Provider: Matthew Ramos Primary Care Provider: Rufina Rojas Other Providers: Manjinder Corbett ; Matthew Ramos ; Saqib Burns ; Suyapa Garcia Other Interventions: Discharge Summary Assessment (RN) Last Done: 03/19/19 13:57 DC Date/Time DO NOT enter until pt leaves facility: 03/19/19 17:45
== END 2019-03-19 17:45 | disposition home or self-care (01) | DRG 244 ==
LOC: ED 11:45 → SUATTDRO 14:53 → 2S 14:53